=== PATIENT | male | born 1995 | race Caucasian/White ===

== ENCOUNTER → 2017-02-16 | Outpatient (CLI) | payer OTHER ==
[~2017-02-16] MED LIST: GADAVIST IV PRN
--- NOTE | 2017-02-16 12:03 | DIAGNOSTIC IMAGING REPORT ---
MRI OF THE BRAIN WITHOUT AND WITH IV CONTRAST SEIZURE PROTOCOL CLINICAL HISTORY: ALTERED MENTAL STATUS, NEW ONSET SEIZURES COMPARISON STUDY: No previous studies for comparison. TECHNIQUE: Utilizing a 1.5 Cheryl magnet and dedicated coil, multiplanar, multiecho imaging of the brain was performed pre and postcontrast administration. IV administration of 8.5 mL of Gadavist contrast was uneventful. Thin cut coronal T2 imaging was performed according to seizure protocol. FINDINGS: Normal study. Signal characteristics are unremarkable. Diffusion-weighted images are within normal limits. No evidence for abnormal postcontrast enhancement. Structures of the sella and parasellar region are unremarkable. Internal auditory canals are symmetric. IMPRESSION: Normal study. Electronically signed by: Rashid Cuevas M.D. 02/16/2017 12:01 PM Dictated Date/Time: 02/16/2017 11:58 AM
== END | disposition home or self-care (01) ==
LOC: C.MRIBC 11:07
PROVIDERS: ATTEND Physician Assistant
DX: R56.9 Unspecified convulsions (principal)